=== PATIENT | male | born 1975 | race Two or more races ===

== ENCOUNTER 2018-09-17 19:39 | Emergency (ER) | payer SELFPAY ==
[~2018-09-17] VITALS: Ht 177.8 cm; Wt 109.0 kg
[2018-09-17] MEDS ORDERED: SODIUM CHLORIDE 0.9% 1,000 ML IV ONE (20:30)
[2018-09-17 21:16] LABS: CHLORIDE 107 mEq/L (98-107)
[2018-09-17 21:20] LABS: BASOPHILS % 1.2 % (0.0-2.0); EOSINOPHILS % 8.9 % (0.0-5.0); HEMATOCRIT. 42.3 % (42.0-52.0); HEMOGLOBIN. 14.5 g/dL (14.0-18.0); LYMPHOCYTES % 47.9 % (20.0-50.0); MEAN CORPUSCULAR HEMOGLOBIN 32.5 pg (28.0-32.0); MEAN CORPUSCULAR VOLUME 94.7 fL (80.0-94.0); MEAN PLATELET VOLUME 8.1 fl (7.4-10.4); MONOCYTES % 7.5 % (2.0-8.0); NEUTROPHILS % 34.5 % (40.0-76.0); PLATELET 278 x1000/uL (130-400); RED BLOOD CELL COUNT 4.47 mill/uL (4.7-6.1); RED CELL DISTRIBUTION WIDTH 13.7 % (11.6-14.6)
[2018-09-17] MEDS ORDERED: HYDROCHLOROTHIAZIDE 12.5MG CAPSULE PO ONE (22:30)
[2018-09-18 00:40] VITALS: BP 183/108
== END 2018-09-18 00:54 | disposition home or self-care (01) ==
LOC: ER 19:39
DX: R07.9 Chest pain, unspecified (principal); F17.200 Nicotine dependence, unspecified, uncomplicated; I10 Essential (primary) hypertension
CPT/HCPCS: 36415; 71045; 80053; 83880; 84484; 85025; 96360; 96361; 99284; J7030

== ENCOUNTER 2019-08-27 12:33 | Emergency (ER) | payer MEDICAID ==
[~2019-08-27] VITALS: Ht 177.8 cm; Wt 118.0 kg
[2019-08-27] MEDS ORDERED: KETOROLAC 60MG/2ML VIAL IM ONE (15:45)
[2019-08-27] MEDS ORDERED: ONDANSETRON 4MG ODT PO ONE (15:45)
[2019-08-27] MEDS ORDERED: HYDROCODONE/ACETAMINOPHEN 5/325MG TABLET PO ONE (15:45)
[2019-08-27] MEDS ORDERED: ENALAPRIL 5MG TABLET PO SCH (16:45)
[2019-08-27 17:30] VITALS: BP 167/105
== END 2019-08-27 18:00 | disposition home or self-care (01) ==
LOC: ER 12:33
DX: M10.9 Gout, unspecified (principal); J44.9 Chronic obstructive pulmonary disease, unspecified; I11.0 Hypertensive heart disease with heart failure; I50.9 Heart failure, unspecified; F12.10 Cannabis abuse, uncomplicated
CPT/HCPCS: 96372; 99284; J1885; Q0162

== ENCOUNTER 2022-05-13 13:19 | Emergency (ER) | payer MEDICAID, OTHER ==
[~2022-05-13] VITALS: Ht 177.8 cm; Wt 127.0 kg
[~2022-05-13 13:19] MED LIST: LOSA100T3 PO
[2022-05-13 13:21] VITALS: BP 153/93
[2022-05-13 15:54] LABS: CHLORIDE 104 mEq/L (98-107)
[2022-05-13 16:04] LABS: BASOPHILS % 0.9 % (0.0-2.0); EOSINOPHILS % 2.4 % (0.0-5.0); HEMATOCRIT. 41.2 % (42.0-52.0); HEMOGLOBIN. 13.9 g/dL (14.0-18.0); LYMPHOCYTES % 31.2 % (20.0-50.0); MEAN CORPUSCULAR HEMOGLOBIN 28.5 pg (28.0-32.0); MEAN CORPUSCULAR VOLUME 84.7 fL (80.0-94.0); MEAN PLATELET VOLUME 8.3 fl (7.4-10.4); MONOCYTES % 5.8 % (2.0-8.0); NEUTROPHILS % 59.7 % (40.0-76.0); PLATELET 478 x1000/uL (130-400); RED BLOOD CELL COUNT 4.86 mill/uL (4.7-6.1); RED CELL DISTRIBUTION WIDTH 13.4 % (11.6-14.6)
[2022-05-13] MEDS ORDERED: KETOROLAC 30MG/ML VIAL IM NR (17:00)
[2022-05-13] MEDS ORDERED: HYDROCODONE/ACETAMINOPHEN 5/325MG TABLET PO ONE (19:00)
== END 2022-05-13 19:27 | disposition home or self-care (01) ==
LOC: ER 13:19
DX: S93.401A Sprain of unspecified ligament of right ankle, initial encounter (principal); I11.0 Hypertensive heart disease with heart failure; I50.9 Heart failure, unspecified; J44.9 Chronic obstructive pulmonary disease, unspecified; X50.1XXA Overexertion from prolonged static or awkward postures, initial encounter; Y93.89 Activity, other specified; Y92.9 Unspecified place or not applicable; Z88.0 Allergy status to penicillin
CPT/HCPCS: 36415; 73600; 73620; 80053; 83880; 85025; 93971; 96372; 99285; J1885

== ENCOUNTER 2024-10-05 00:52 | Emergency (ER) | payer OTHER ==
[~2024-10-05] VITALS: Ht 172.7 cm; Wt 130.0 kg
[~2024-10-05 00:52] MED LIST changes: +LOSA-415 PO; -LOSA100T3 PO
[2024-10-05 01:18] VITALS: O2SAT 98
[2024-10-05 03:13] VITALS: BP 134/72; PULSE 74; RESP 18; TEMP 36.72516; O2SAT 99
== END 2024-10-05 03:15 | disposition home or self-care (01) ==
LOC: ER 00:52
DX: R42 Dizziness and giddiness (principal); F12.10 Cannabis abuse, uncomplicated; I10 Essential (primary) hypertension; Z00.00 Encounter for general adult medical examination without abnormal findings; Z88.0 Allergy status to penicillin
CPT/HCPCS: 99281